=== PATIENT | female | born 1985 | race Caucasian/White ===

== ENCOUNTER 2016-06-25 21:00 | Emergency (ER) | payer SELFPAY ==
--- NOTE | 2016-06-26 01:36 | ER ---
ADMIT: 06/25/2016 RM/LOC: ER [facility] MR#: [id number] [facility] [address] [place] [id number] ИВАН ARAUJO [address] [place] [address] Emergency Room Report SEX: F AGE: 30 : 1985 DATE: 06/25/2016 The patient is a 30-year-old [place]-speaking immigrant complaining of toothache #15 for the past 4 days. Denies any fevers, chills, or facial swelling. Exam remarkable for acutely uncomfortable, nontoxic, afebrile female with tender #15 tooth, multiple fillings noted, no gingival swelling or drainage, treated with superior alveolar block, benzocaine 20% gel followed by bupivacaine 0.5 with epinephrine with good results. Home with hydrocodone 5/325 as needed #20 plus 6 from Pyxis. Pen VK 1 g in department, 500 mg q.i.d. #28. Follow up dentist next week. Vahid Skinner MD/ christin JOB #: [id number] CC: Vahid Skinner MD, Attending Physician Ariel Lyle MD, Family Physician Ariel Lyle MD
== END 2016-06-25 22:00 | disposition home or self-care (01) ==
LOC: ER 21:00
PROC: 3E0T3BZ Introduction of Anesthetic Agent into Peripheral Nerves and Plexi, Percutaneous Approach (ICD-10-PCS; principal; 2016-06-25)
DX: K02.9 Dental caries, unspecified (principal)